=== PATIENT | female | born 1995 | race Two or more races ===

== ENCOUNTER 2023-07-08 07:43 | Day surgery (SDC) | payer OTHER ==
[2023-07-07 18:40] LABS: HEMATOCRIT 31.4 % (36.0-45.00); HEMOGLOBIN 10.6 g/dL (12.0-15.00); MEAN CELL VOLUME 89.2 fL (80.00-100.00); MEAN CORPUSCULAR HGB CONC 33.7 g/dl (32.0-36.0); PLATELET COUNT 240 K/uL (150-450); RED BLOOD COUNT 3.52 M/uL (4.00-6.00); RED CELL DISTRIBUTION WIDTH 13.8 % (11.5-14.5)
[2023-07-07 19:00] LABS: INR 0.98; PARTIAL THROMBOPLASTIN TIME 31.1 SECONDS (22.0-34.0); PROTHROMBIN TIME 10.3 SECONDS (9.0-11.5)
[2023-07-07 20:50] LABS: PH,URINE 5.5; URINE BILIRRUBIN SMALL (NEGATIVE); URINE BLOOD LARGE; URINE GLUCOSE NEGATIVE (NEGATIVE); URINE LEUKOCYTE SMALL; URINE NITRATE POSITIVE
[2023-07-07 21:05] LABS: URINE COLOR RED; URINE PROTEIN 100 (NEGATIVE)
[2023-07-07 21:06] LABS: URINE APPEARANCE BLOODY
[2023-07-07 21:07] LABS: URINE RBC LOADED /HPF
[2023-07-07 21:08] LABS: URINE MUCUS SCANT
[2023-07-07 21:10] LABS: URINE BACTERIA FEW
[~2023-07-08] VITALS: Ht 180.3 cm; Wt 86.2 kg
[2023-07-08 07:20] LABS: CALCIUM 8.2 mg/dL (8.5-10.1); CREATININE SERUM 0.68 mg/dL (0.55-1.02); GFR 104.59; POTASSIUM 3.79 mEq/L (3.5-5.1)
[2023-07-08] MEDS ORDERED: IBU600 MG PO (10:41)
[2023-07-08] MEDS ORDERED: MORGIDOX100 MG PO (10:41)
== END 2023-07-08 16:48 | disposition home or self-care (01) ==
LOC: CIR.AMB 07:43 → EDBD 07:43 → ER 07:43 → CIR.AMB 07:43 → O/R 07:43 → CIR.AMB 16:48
PROVIDERS: ATTEND Emergency Medicine
DX: O03.4 Incomplete spontaneous abortion without complication (principal); O72.2 Delayed and secondary postpartum hemorrhage; Z20.822 Contact with and (suspected) exposure to COVID-19